=== PATIENT | male | born 1975 | race Caucasian/White ===

== ENCOUNTER 2024-08-19 11:07 | Emergency (ER) | payer BC ==
[~2024-08-19] VITALS: Ht 175.3 cm; Wt 108.9 kg
[~2024-08-19 11:07] MED LIST: CODITUSSIN AC473 M1 PO; HYDACE5 PO; INDO50 PO; Tessalon Perle100 MG PO
[2024-08-19 11:30] VITALS: BP 170/123
[2024-08-19 12:11] LABS: BASOPHILS ABSOLUTE AUTO 0.06 K/mm3 (0.00-0.23); BASOPHILS PERCENT AUTO 1 % (0-2); EOSINOPHILS ABSOLUTE AUTO 0.22 K/mm3 (0.00-0.68); EOSINOPHILS PERCENT AUTO 3 % (0-6); Hematocrit 46.8 % (37.0-53.0); IMMATURE GRAN ABSOLUTE AUTO 0.04 K/mm3 (0.00-0.10); IMMATURE GRAN PERCENT AUTO 1 % (0-1); LYMPHOCYTES ABSOLUTE AUTO 2.26 K/mm3 (0.84-5.20); LYMPHOCYTES PERCENT AUTO 28 % (21-46); MONOCYTES ABSOLUTE AUTO 0.51 K/mm3 (0.16-1.47); MONOCYTES PERCENT AUTO 6 % (4-13); Mean Corpuscular HGB 29.3 pg (26.0-34.0); Mean Corpuscular HGB Conc 34.2 g/dL (31.5-36.5); Mean Corpuscular Volume 86 fL (80-100); Mean Platelet Volume 11.5 fL (9.1-12.4); NEUTROPHILS ABSOLUTE AUTO 4.92 K/mm3 (1.96-9.15); NEUTROPHILS PERCENT AUTO 62 % (41-73); Platelet Count 231 K/mm3 (150-400); RDW Coefficient Variation 13.1 % (11.7-14.2); RDW Standard Deviation 40.7 fL (35.1-46.3); Red Blood Cell Count 5.47 M/mm3 (4.30-5.90); White Blood Cell Count 8.01 K/mm3 (4.00-11.30)
[2024-08-19 12:49] LABS: Albumin, Blood 3.7 g/dL (3.4-5.0); Albumin/Globulin Ratio 1.1 (0.8-1.8); Bilirubin, Total 0.3 mg/dL (0.1-1.0); Bun/Creatinine Ratio 9.2 (12.0-20.0); Creatinine, Blood 0.98 mg/dL (0.60-1.20); Globulin, Blood 3.3 g/dL (2.2-4.0); Potassium, Blood 3.9 mmol/L (3.5-5.5)
[2024-08-19] MEDS ORDERED: CYCL10 PO (13:17)
== END 2024-08-19 13:28 | disposition home or self-care (01) ==
LOC: ER 11:07
PROVIDERS: Student in an Organized Health Care Education/Training Program
DX: S39.012A Strain of muscle, fascia and tendon of lower back, initial encounter (principal); X58.XXXA Exposure to other specified factors, initial encounter; E11.22 Type 2 diabetes mellitus with diabetic chronic kidney disease; I12.9 Hypertensive chronic kidney disease with stage 1 through stage 4 chronic kidney disease, or unspecified chronic kidney disease; N18.9 Chronic kidney disease, unspecified; I25.10 Atherosclerotic heart disease of native coronary artery without angina pectoris
CPT/HCPCS: 71046; 80053; 83690; 84484; 85025; 93005; 93010; 99285-25

== ENCOUNTER 2025-02-05 06:10 | Day surgery (SDC) | payer BC ==
[~2025-02-05] VITALS: Ht 175.3 cm; Wt 112.4 kg
[~2025-02-05 06:10] MED LIST changes: +CYCL10 PO; +GABA300 PO; +IRBE150 PO; +NAPR500 PO; +Prilosec10 M1 PO
[2025-02-05] MEDS ORDERED: Tranexamic Acid 100 ML IV ONE ×2 (06:25→09:17)
[2025-02-05] MEDS ORDERED: CeFAZolin Sodium 2,000 MG VIAL ONE (06:33)
[2025-02-05] MEDS ORDERED: FentaNYL Citrate 50 MCG/ML 2 ML Injection ONE ×2 (07:04→09:22)
[2025-02-05] MEDS ORDERED: Sugammadex Sodium 200 MG/2ML SDV (100 MG/ML) ONE (07:07)
--- NOTE | 2025-02-05 07:27 | NUR ---
02/05/25 0727 DEREK OLIVEIRA TIME OUT: 715 BLOCK START: 721 BLOCK END: 726
[2025-02-05] MEDS ORDERED: Labetalol HCL 5 MG/ML 4ML Injection (Single Dose) ONE (08:27)
[2025-02-05] MEDS ORDERED: Dexamethasone Sod Phos 10 MG/ML 1ML VIAL ONE (08:27)
[2025-02-05] MEDS ORDERED: Bupivacaine HCl 0.25% 30 ML Injection ONE (08:28)
[2025-02-05] MEDS ORDERED: Rocuronium Bromide 10 MG/ML 5ML Injection IV ONE (08:28)
[2025-02-05] MEDS ORDERED: Bupivacaine 0.5% HCl 5 MG/ML 30MLVIAL ONE (08:28)
[2025-02-05] MEDS ORDERED: Lidocaine 1%-Epineph 1:200000 30 ML SDV ONE (08:38)
[2025-02-05] MEDS ORDERED: Ketorolac Tromethamine 30mg Vial ONE (08:43)
--- NOTE | 2025-02-05 09:12 | NUR ---
02/05/25 0912 Jazzmine Jensen PT VERY RESTLESS UPON ARRIVAL TO PACU, ANESTHESIA ATTEMPTING TO CALM DOWN. PT REMAINS RESTLESS, BUT COMMUNICATING WITH STAFF APPROPRIATELY, ANSWERING QUESTIONS APPROPRIATELY. ANESTHESIA BACK AT BEDSIDE PRIOR TO DC FROM PACU TO CHECK-IN.
--- NOTE | 2025-02-05 10:32 | NUR ---
02/05/25 1032 Jazzmine Jensen 0930 - 12.5 [facility] FENT ADMIN FOR PAIN 5/10 PT TOLERATED WELL. PAIN 4/10, ACCEPTABLE TO PT UP TO BATHRM X2 VSS. FAMILY TO BEDSIDE
[2025-02-05 11:16] VITALS: BP 144/79
== END 2025-02-05 11:16 | disposition home or self-care (01) ==
LOC: ORSCSDS 06:10
PROVIDERS: Orthopaedic Surgery Sports Medicine
PROC: 0RNJ4ZZ Release Right Shoulder Joint, Percutaneous Endoscopic Approach (ICD-10-PCS; principal; 2025-02-05 07:30)
PROC: 0LS34ZZ Reposition Right Upper Arm Tendon, Percutaneous Endoscopic Approach (ICD-10-PCS; principal; 2025-02-05 07:30)
PROC: 0LQ14ZZ Repair Right Shoulder Tendon, Percutaneous Endoscopic Approach (ICD-10-PCS; principal; 2025-02-05 07:30)
DX: M75.111 Incomplete rotator cuff tear or rupture of right shoulder, not specified as traumatic (principal); M75.21 Bicipital tendinitis, right shoulder; S43.431A Superior glenoid labrum lesion of right shoulder, initial encounter; M75.41 Impingement syndrome of right shoulder; I10 Essential (primary) hypertension; G47.33 Obstructive sleep apnea (adult) (pediatric); K21.9 Gastro-esophageal reflux disease without esophagitis; Z79.899 Other long term (current) drug therapy; Z68.36 Body mass index [BMI] 36.0-36.9, adult
CPT/HCPCS: C1713; J0166; J0690; J1100; J1885; J2704; J3010; J7120